=== PATIENT | male | born 1965 | race American Indian/Alaskan Native ===

== ENCOUNTER 2016-09-25 07:43 | Day surgery (SDC) | payer OTHER ==
--- NOTE | 2016-09-25 10:17 | History and Physical Report ---
History of Present Illness Date of examination: 09/25/16 Chief complaint: neck fullness History of present illness: recently noticed Medications and Allergies Allergies Allergy/AdvReac Type Severity Reaction Status Date / Time No Known Allergies Allergy Verified 09/25/16 08:20 Home Medications Medication Instructions Recorded Confirmed Last Taken Type No Known Home Medications [No 09/25/16 09/25/16 Unknown History Reported Home Medications] Exam Vital Signs Temp Pulse Resp BP Pulse Ox 98.1 F 59 L 16 119/72 98 09/25/16 08:17 09/25/16 08:17 09/25/16 08:17 09/25/16 08:17 09/25/16 08:17
--- NOTE | 2016-09-25 10:20 | Procedure Note ---
Date of procedure: 09/25/16 Pre-op diagnosis: thyroid nodules sarah. Post-op diagnosis: same Procedure: u/s guided bli. bx Findings: asp,/bx material Anesthesia: local Surgeon: MIRZA LUTHER Estimated blood loss: none Pathology: list (thyroid asp/bx material) Condition: stable Disposition: observation
[2016-09-25 10:23] VITALS: BP 112/62
--- NOTE | 2016-09-25 10:40 | Ultrasound Report ---
Ultrasound bilateral thyroid biopsies: Patient presents with palpable neck masses bilaterally. Thyroid imaging demonstrates dominant circumscribed heterogeneous masses in the upper portions of each thyroid lobe however similar smaller masses are also present bilaterally. The dominant mass on the left measures 3.8 cm and on the right measures 4.4 cm. With no calcifications identified. Both lesions have increased flow pattern with color imaging. The skin was cleansed over both lesions and 1% lidocaine used for local anesthesia. Samples were obtained bilaterally first using a 25-gauge needle with aspiration followed by biopsy with a Rotex needle. No complications were encountered. The attending pathologist indicated that adequate samples have been obtained bilaterally. The patient was sent for OPU prior to discharge.
== END 2016-09-25 10:30 | disposition home or self-care (01) ==
LOC: CATHLABREC 07:43 → EDSTATUS 09:00 → CATHLABREC 10:30
PROVIDERS: ATTEND Specialist
DX: E07.89 Other specified disorders of thyroid (principal)
CPT/HCPCS: 60100; 76942; 88112; 88172; 88173; 88305